=== PATIENT | male | born 1955 ===

== ENCOUNTER 2021-04-28 08:00 | Inpatient (IN) ==
--- NOTE | 2021-04-11 10:39 | PAT Medication Instructions ---
Medication Instructions Date of Service April 11, 2021 Home Medications apixaban [Eliquis] 5 mg PO BID aspirin [Aspir-81] 81 mg PO QAM atenolol 50 mg PO BID cyclobenzaprine [Flexeril] 10 mg PO TID PRN gabapentin 600 mg PO BID isosorbide mononitrate 60 mg PO BID magnesium oxide 400 mg PO TID multivitamin 1 tab PO QAM oxycodone-acetaminophen 1 tab PO BID potassium chloride 10 meq PO BID simvastatin 20 mg PO HS spironolactone 25 mg PO TID tiotropium bromide [Spiriva with HandiHaler] 1 cap INHALATION QAM ASK your prescriber and surgeon apixaban [Eliquis] 5 mg PO BID aspirin [Aspir-81] 81 mg PO QAM DO NOT take the morning of surgery cyclobenzaprine [Flexeril] 10 mg PO TID PRN magnesium oxide 400 mg PO TID multivitamin 1 tab PO QAM potassium chloride 10 meq PO BID spironolactone 25 mg PO TID Take morning of surgery With a small sip of water, OTHERWISE NOTHING TO EAT OR DRINK AFTER MIDNIGHT: atenolol 50 mg PO BID gabapentin 600 mg PO BID isosorbide mononitrate 60 mg PO BID oxycodone-acetaminophen 1 tab PO BID (okay to take up to 4 hours prior to surgery if needed) tiotropium bromide [Spiriva with HandiHaler] 1 cap INHALATION QAM Take evening before surgery atenolol 50 mg PO BID cyclobenzaprine [Flexeril] 10 mg PO TID PRN (if needed) gabapentin 600 mg PO BID isosorbide mononitrate 60 mg PO BID magnesium oxide 400 mg PO TID oxycodone-acetaminophen 1 tab PO BID potassium chloride 10 meq PO BID simvastatin 20 mg PO HS spironolactone 25 mg PO TID Other Notes If you have any questions please call us at [phone] or [phone] or [phone] or [phone]
--- NOTE | 2021-04-14 11:08 | Anesthesiology Consultation ---
Date of Service April 14, 2021 Assessment & Plan (1) Encounter for pre-operative examination: - Awaiting most recent cardiology office visit. - Abnormal preop CXR: noting Ill-defined opacities of the peripheral right midlung may be artifactual or reflect a nonspecific interstitial pneumonitis. Awaiting PCP response. - COVID screening: Per assessment on 04/07: Travel screen negative, no known COVID-19 positive contacts or current COVID-19 related symptoms. Patient vaccinated. Surgeon arranging preop COVID testing (scheduled 04/26). Awaiting results. - Eliquis instructions: per surgeon/prescriber Chart Review Chart Review: Patient seen in Pre Admission Testing Teaching & Discussion Pre-Anesthesia Teaching/Discussion Notes: Instructed NPO after midnight before surgery,except medications with 15 cc of water. Medication instructions provided according to the PAT guidelines. History Surgery Operation Date: 04/28/21 09:35 Proposed Procedures p T12-L3 Decompression Fusion, L3-L5 Hardware Removal Possible L3-L5 Re- Instrumentation Spinal Cord Monitoring - Byron Dillard DO Height/Weight Height: 6 ft 1 in Weight: 96.4 kg Allergies Allergy/AdvReac Type Severity Reaction Status Date / Time No Known Allergies Allergy Verified 04/07/21 13:50 Medications Home Medications Medication Instructions Recorded Confirmed Last Taken apixaban [Eliquis] 5 mg PO BID 04/07/21 04/07/21 Unknown aspirin [Aspir-81] 81 mg PO QAM 04/07/21 04/07/21 Unknown atenolol 50 mg PO BID 04/07/21 04/07/21 Unknown cyclobenzaprine [Flexeril] 10 mg PO TID PRN 04/07/21 04/07/21 Unknown gabapentin 600 mg PO BID 04/07/21 04/07/21 Unknown isosorbide mononitrate 60 mg PO BID 04/07/21 04/07/21 Unknown magnesium oxide 400 mg PO TID 04/07/21 04/07/21 Unknown multivitamin 1 tab PO QAM 04/07/21 04/07/21 Unknown oxycodone-acetaminophen 1 tab PO BID 04/07/21 04/07/21 Unknown potassium chloride 10 meq PO BID 04/07/21 04/07/21 Unknown simvastatin 20 mg PO HS 04/07/21 04/07/21 Unknown spironolactone 25 mg PO TID 04/07/21 04/07/21 Unknown tiotropium bromide [Spiriva with 1 cap INHALATION QAM 04/07/21 04/07/21 Unknown HandiHaler] Past Medical History Medical History Arthritis Atrial fibrillation Follows with Dr. Mikala Lion ([place]), on Eliquis CAD (coronary artery disease) Stents x2 ([place])- 10+ years ago Chronic obstructive pulmonary disease Congestive heart failure Degenerative disc disease History of pelvic fracture Medically managed (5+ years ago) Hyperlipidemia Hypertension Peripheral neuropathy Sleep apnea CPAP Spinal stenosis Exercise / Class Metabolic Activity III < 4 Walking/Shop/Light housework (one flight of stairs (no chest pain, + sob)) Past Family History Family History Other No family history of adverse response to anesthesia Past Surgical History Surgical History Fusion of spine Lumbar H/O abdominal surgery Sepsis after appe from hematoma formation > evacuation of hematoma and I&D H/O colonoscopy with polypectomy H/O elbow surgery Right History of anesthesia reaction "slow to wake" with most recent back surgery History of appendectomy History of carpal tunnel release Right History of heart artery stent Stents x2 ([place])- 10+ years ago History of nasal cauterization History of tooth extraction Hx of basal cell carcinoma excision Cervical region Past Anesthesia History No Hx of Anesthesia Complications and No Family Hx of Anesthesia Complications History of PONV No Hx of PONV and No Hx of Motion Sickness Social History Smoking Status: Former smoker tobacco type: cigarettes and smokeless tobacco Do You Dip or Chew Tobacco: Yes (1 can/3-4 days > advised none DOS) Smoking End Date: Quit 10+ years ago Hx Alcohol Use: No (Quit 1 year ago) Hx Substance Use: No Review of Systems Patient denies chest pain, shortness of breath, fever, chills, cough, wheezing, palpitations. Physical Exam Vital Signs VITALS BP 116/63 P 74 TEMP 98.5 SP02 94%RA RESP 18 PHYSICAL Full cervical extension range of motion (+ neck tightness with extension). Full TMJ range of motion. TMD 3 finger breaths Mallampati Score 2 Dentition: upper full plate, full lower plate (doesn't wear) Lungs: clear throughout to auscultation Cardiac: regular rate and rhythm, no murmurs noted, distant heart sounds Spine: normal Carotid arteries: negative bruit Extremities: no edema + small cruz Lab Results Anesthesia Preop Results Results Anesthesia Widget: WBC 8.79 K/uL (4.8-10.8) 04/14/21 Hgb 11.9 g/dL (14.0-18.0) L 04/14/21 Hct 35.6 % (42-52) L 04/14/21 Plt 180 K/uL (130-400) 04/14/21 Na 139 mmol/L (136-145) 04/14/21 K 4.4 mmol/L (3.5-5.1) 04/14/21 Cl 105 mmol/L (98-107) 04/14/21 CO2 31 mmol/L (21-32) 04/14/21 BUN 18 mg/dl (7-18) 04/14/21 Creat 0.73 mg/dl (0.6-1.4) 04/14/21 Glucose Level 119 mg/dl (70-99) H 04/14/21 PT 9.8 Seconds (9.0-12.0) 04/14/21 PTT 29.9 Seconds (21.0-31.0) 04/14/21 INR 1.0 (0.9-1.1) 04/14/21 Urine Color Yellow 04/14/21 Urine Appearance Clear (Clear) 04/14/21 Urine pH 6.0 (4.5-7.5) 04/14/21 Urine Specific [place] 1.016 (1.000-1.030) 04/14/21 Urine Protein Negative (Negative) 04/14/21 Urine Glucose (UA) Negative (Negative) 04/14/21 Urine Ketones Negative (Negative) 04/14/21 Urine Blood Negative (Negative) 04/14/21 Urine Nitrite Negative (Negative) 04/14/21 Urine Bilirubin Negative (Negative) 04/14/21 Urine Urobilinogen Negative (Negative) 04/14/21 Urine Leukocyte Esterase Negative (Negative) 04/14/21 Blood Type A Positive 04/14/21 Antibody Screen NEGATIVE 04/14/21 Lab Comments: Preop labs forwarded to PCP for continuity of care. Testing Electrocardiogram Date: 04/12/21 SR at 80bpm. NS TWA. Chest X-Ray Date: 04/14/21 Ill-defined opacities of the peripheral right midlung may be artifactual or reflect a nonspecific interstitial pneumonitis. Hyperinflation. Cardiomegaly.
[~2021-04-28 08:00] MED LIST: ACETAMINOPHEN 500 MG TAB PO SCH; CeleBREX 200 MG CAP PO SCH; GABAPENTIN 300 MG CAP PO SCH; LR 15ML/HR IV SCH; ceFAZolin 2000MG 2,000 MG/15 ML SYR IV SCH
--- NOTE | 2021-04-28 09:14 | History & Physical Bridge Note ---
Date of Service April 28, 2021 History & Physical Bridge Note I have examined the patient, reviewed the History & Physical and in the interval since the performance of the History & Physical I have noted the following changes of clinical significance: no changes noted
--- NOTE | 2021-04-28 09:15 | History & Physical Report ---
Date of Service April 28, 2021 Assessment & Plan (1) Neurogenic claudication due to lumbar spinal stenosis: Admission and Anticipated Discharge Date Admission Date: T12-L3 decompression fusion, L3-L5 hardware removal, possible L3-L5 instrumentation History of Present Illness Chief Complaint: Back and bilateral leg pain Primary Care Provider: [place] Arguello This is a 65-year-old male who presents with chronic persistent back and leg pain. Failing course of nonoperative care is here for surgical invention. Allergies Allergy/AdvReac Type Severity Reaction Status Date / Time No Known Allergies Allergy Verified 04/28/21 08:27 Home Medications Medication Instructions Recorded Confirmed Type apixaban [Eliquis] 5 mg PO BID 04/07/21 04/28/21 History aspirin [Aspir-81] 81 mg PO QAM 04/07/21 04/28/21 History atenolol 50 mg PO BID 04/07/21 04/28/21 History cyclobenzaprine [Flexeril] 10 mg PO TID PRN 04/07/21 04/28/21 History gabapentin 600 mg PO BID 04/07/21 04/28/21 History isosorbide mononitrate 60 mg PO BID 04/07/21 04/28/21 History magnesium oxide 400 mg PO TID 04/07/21 04/28/21 History multivitamin 1 tab PO QAM 04/07/21 04/28/21 History oxycodone-acetaminophen 1 tab PO BID 04/07/21 04/28/21 History potassium chloride 10 meq PO BID 04/07/21 04/28/21 History simvastatin 20 mg PO HS 04/07/21 04/28/21 History spironolactone 25 mg PO TID 04/07/21 04/28/21 History tiotropium bromide [Spiriva with 1 cap INHALATION QAM 04/07/21 04/28/21 History HandiHaler] Past Med/Surg History Medical History Arthritis Atrial fibrillation Follows with Dr. Mikala Lion ([place]), on Eliquis CAD (coronary artery disease) Stents x2 ([place])- 10+ years ago Chronic obstructive pulmonary disease Congestive heart failure Degenerative disc disease History of pelvic fracture Medically managed (5+ years ago) Hyperlipidemia Hypertension Peripheral neuropathy Sleep apnea CPAP Spinal stenosis Surgical History Fusion of spine Lumbar H/O abdominal surgery Sepsis after appe from hematoma formation > evacuation of hematoma and I&D H/O colonoscopy with polypectomy H/O elbow surgery Right History of anesthesia reaction "slow to wake" with most recent back surgery History of appendectomy History of carpal tunnel release Right History of heart artery stent Stents x2 ([place])- 10+ years ago History of nasal cauterization History of tooth extraction Hx of basal cell carcinoma excision Cervical region Family History Other No family history of adverse response to anesthesia Social History Smoking Status: Former smoker Smoking End Date: Quit 10+ years ago; Second Hand Exposure: Yes (IN THE PAST); Do You Dip or Chew Tobacco: Yes (1 can/3-4 days > advised none DOS); Tobacco Cessation Education Requested by Patient: No Hx Alcohol Use: No (Quit 1 year ago) Hx Substance Use: No Preferred Language: Amharic Counter Stitcher Required: No Beliefs That Will Affect Care: None Current Living Situation: Spouse Feels Safe at Home: Yes Safety Concerns: Feels Safe At This Time Assistive Devices: Cane, CPAP, Denture - Upper and Glasses Physical Exam Physical Exam: Patient is alert and oriented Heart regular in rhythm Lungs clear to auscultation Results & Data ([facility]) Vital Signs (Past 12 Hours) Vital Signs Temp Pulse Resp BP Pulse Ox 04/28/21 08:50 36.8 C 67 20 138/70 98
[2021-04-28] MEDS ORDERED: ePHEDrine sulfate 50 MG/ML AMP IV PRN (09:25)
[2021-04-28] MEDS ORDERED: ONDANSETRON INJ 2 MG/ML 2 ML VIAL IV PRN ×2 (09:25→15:35)
[2021-04-28] MEDS ORDERED: ATROPINE SULFATE 0.1 MG/ML 10ML SYR IV PRN (09:25)
[2021-04-28] MEDS ORDERED: BUPIVACAINE/EPINEPHRINE 0.5% MPF 1:200,000 30 ML VIAL ONE (09:29)
[2021-04-28] MEDS ORDERED: MIDAZOLAM HCL 1 MG/ML 2ML VIAL ONE (09:33)
[2021-04-28] MEDS ORDERED: fentaNYL citrate 100 MCG/2 ML VIAL ONE ×2 (09:33→12:41)
[2021-04-28] MEDS ORDERED: KETAMINE 50 MG/5 ML SYRINGE ONE (11:15)
[2021-04-28] MEDS ORDERED: ONDANSETRON INJ 2 MG/ML 2 ML VIAL ONE (11:28)
[2021-04-28] MEDS ORDERED: LIDOCAINE 2% 2 ML VIAL/AMP(20MG/ML) INFIL ONE (11:28)
[2021-04-28] MEDS ORDERED: DEXAMETHASONE SOD INJ 4 MG/ML VIAL ONE (11:28)
[2021-04-28] MEDS ORDERED: PROPOFOL IV EMULSION 10 MG/ML 20 ML VIAL IV ONE (11:28)
[2021-04-28] MEDS ORDERED: ROCURONIUM BROMIDE 10 MG/ML 5 ML VIAL IV ONE (11:28)
[2021-04-28] MEDS ORDERED: SUCCINYLCHOLINE CHLORIDE 20 MG/ML 10 ML VIAL IV ONE (11:28)
[2021-04-28] MEDS ORDERED: ePHEDrine sulfate 50 MG/ML AMP ONE (11:29)
[2021-04-28] MEDS ORDERED: ALBUMIN HUMAN 5% 12.5 GM/250 ML VIAL IV ONE (11:40)
[2021-04-28] MEDS ORDERED: FLOSEAL HEMOSTATIC MATRIX 10ML TOP ONE (12:59)
[2021-04-28] MEDS ORDERED: SODIUM CHLORIDE 0.9% 250 ML IV PRN (13:00)
[2021-04-28] MEDS ORDERED: SUGAMMADEX SODIUM 200 MG/2 ML VIAL IV ONE (13:09)
--- NOTE | 2021-04-28 13:15 | Operative Report ---
Post Operative Report Pre & Post Diagnosis Operation Date: 04/28/21 09:45 Pre-Op Diagnosis: Neurogenic Claudication due to Lumbar Spinal Stenosis Post-Op Diagnosis: Neurogenic Claudication due to Lumbar Spinal Stenosis I identified the patient and participated in the time-out.: Yes Procedure Operation Date: 04/28/21 09:45 Actual Procedures #1 removal of posterior segmental instrumentation L3 445. #2 exploration of fusion L3-4 L4-5. #3 revision lumbar decompression with bilateral medial facetectomies and foraminotomies T12-L1, L1-L2 and L2-L3. #4 posterior spinal fusion T12-L3. #5 placement posterior segmental instrumentation from T12-L5. #6 placement locally harvested morselized autograft in the posterior gutters. #7 placement of infuse collagen sponge, and master graft in the posterior gutters T12 and L5 3. Surgeon Byron Dillard, DO Humanities Department Chair Sabrina Sebastian Estimated Blood Loss 900 Findings Consistent with Post-Op Diagnosis Specimens None Indications This is a 65-year-old male who presents with severe limitation secondary to advanced lumbar spinal stenosis. Subsequently is here for the above-mentioned procedure. Description of Procedure Patient was met with identified informed consent obtained. Patient was then taken to the operative suite underwent an patient placed in a prone position the Girma table was in frame. All bony prominences well-padded eyes inspected to ensure no external pressure placed upon up at this point the lumbar spine was p repped and draped in a sterile fashion. Sharp dissection with the assistance of Bovie cautery was performed down to and exposing the lamina and transverse processes of T12 L1-L2 and the instrumentation at L3-L4-L5 bilaterally. Then proceeded to move the hardware bilaterally explore the fusion mass noting it to be mature and intact. Then performed revision complete laminectomy of L2 L1 and partial laminectomy of T12. I noted severe central lateral recess as well as foraminal stenosis. Pedicle screws were then placed in T12 L1-L2-L3 and L5 bilaterally with assistance of fluoroscopy the proper sized kellie contoured and placed and locked into position. The transverse processes of T12 L1-L2-L3 were then burred to subcortical bleeding bone. Infuse collagen sponge master graft local autograft was placed in the posterior gutters. 15 round AVNI drain inserted. The incision was then closed with 1 Vicryl the fascia 2-0 Vicryl subcutaneously and 4 Monocryl for final skin closure. Steri-Strip sterile dressings placed. Patient will continue PACU stable condition. Please note spinal cord monitoring was utilized at the procedure no changes noted. Lastly Sabrina Sebastian was present at the entire surgeon while the patient positioning complex portions of the surgery and final skin closure. I attest to the content of the Intraoperative Record and any orders documented therein. Any exceptions are noted below.
[2021-04-28] MEDS ORDERED: BACITRACIN OINT 15 GM TUBE ONE (13:35)
--- NOTE | 2021-04-28 14:03 | Fluoroscopy Report ---
FL lumbar spine 2-3V CLINICAL HISTORY: T12-L3 DECOMPRESSION FUSION COMPARISON STUDY: None FLUOROSCOPY TIME: 29 seconds. NUMBER OF FLUOROSCOPIC IMAGES: 3 FINDINGS: Intraoperative fluoroscopic images presented for review shows multiple screws within the vertebral van dies connecting by fixating plates. IMPRESSION: As above. ACT 112: Negative or not required by law. The above report was generated using voice recognition software. It may contain grammatical, syntax o r spelling errors. Electronically signed by: Erica Corado DO 04/28/2021 2:01 PM
[2021-04-28] MEDS: fentaNYL citrate 100 MCG/2 ML VIAL IV PRN ×2 (14:18→14:26)
[2021-04-28 14:21] LABS: iSTAT Creatinine 0.7 mg/dl (0.6-1.3); iSTAT Hemoglobin 10.2 g/dl (14.0-18.0); iSTAT Ionized Calcium 1.27 mmol/l (1.12-1.32); iSTAT Potassium 4.2 mmol/L (3.3-5.0)
[2021-04-28] MEDS: HYDROmorphone INJ 2 MG/ML SYR/VIAL IV PRN ×4 (14:44→15:01)
--- NOTE | 2021-04-28 15:11 | Anesthesiology Progress Note ---
Date of Service April 28, 2021 Anesthesia Post Procedure Vital Signs Vital Signs: Temp Pulse Pulse Resp BP BP Pulse Ox 04/28/21 15:00 76 18 138/82 95 04/28/21 14:50 77 20 136/75 93 04/28/21 14:40 76 20 143/81 H 95 04/28/21 14:30 80 16 146/70 H 98 04/28/21 14:20 75 18 142/98 H 97 04/28/21 14:10 76 20 145/78 H 98 04/28/21 14:00 78 18 107/77 95 04/28/21 13:50 76 20 131/76 97 04/28/21 13:48 36.5 C 76 17 140/68 97 04/28/21 08:50 36.8 C 67 20 138/70 98 Pain Intensity Left Buttock: Pain Intensity: 5 Back: Pain Intensity: 9 Transfer of Care Handoff Completed per policy Notes Mental Status: alert / awake / arousable and participated in evaluation Patient Amnestic to Procedure: Yes Nausea / Vomiting: adequately controlled Pain: adequately controlled Airway Patency, RR, SpO2: stable & adequate BP & HR: stable & adequate Hydration State: stable & adequate Anesthetic Complications: no major complications apparent and Pt Satisfied with anesthetic care
[2021-04-28] MEDS ORDERED: LORazepam 0.5 MG/1 ML VIAL IV PRN (15:35)
[2021-04-28] MEDS ORDERED: ACETAMINOPHEN 500 MG TAB PO PRN (15:35)
[2021-04-28] MEDS ORDERED: diphenhydrAMINE Capsule 25 MG CAP PO PRN (15:35)
[2021-04-28] MEDS ORDERED: hydrOXYzine HCl 25 MG TAB PO PRN (15:35)
[2021-04-28] MEDS ORDERED: LORazepam 0.5 MG TAB PO PRN (15:35)
[2021-04-28] MEDS ORDERED: METOCLOPRAMIDE HCL INJ 5 MG/ML 2 ML VIAL IV PRN (15:35)
[2021-04-28] MEDS ORDERED: ALUMINUM/MAGNESIUM SUSP 30 ML UDC PO PRN (15:35)
[2021-04-28] MEDS ORDERED: HYDROmorphone INJ 1 MG/ML SYRINGE IV PRN (15:35)
[2021-04-28] MEDS ORDERED: ONDANSETRON 4 MG OD TAB PO PRN (15:35)
[2021-04-28] MEDS ORDERED: FAMOTIDINE 20 MG TAB PO PRN (15:35)
[2021-04-28] MEDS ORDERED: HYDROmorphone INJ 0.5 MG/0.5 ML SYR IV PRN (15:35)
[2021-04-28] MEDS ORDERED: SOD PHOSPHATE/SOD BIPHOSPHATE ENEMA 132 ML BTL PR PRN (15:35)
[2021-04-28] MEDS ORDERED: MAGNESIUM HYDROXIDE SUSP 30 ML UDC PO PRN (15:35)
[2021-04-28] MEDS ORDERED: traMADol HCL 50 MG TABLET PO PRN (15:35)
[2021-04-28] MEDS ORDERED: ACETAMINOPHEN 1,000 MG/100 ML VIAL IV PRN (15:35)
[2021-04-28] MEDS ORDERED: NALOXONE HCL 0.4 MG/1 ML VIAL/CARP IV PRN (15:35)
[2021-04-28] MEDS ORDERED: PROMETHAZINE HCL 12.5 MG in SODIUM CHLORIDE 0.9% 50 ML IV PRN (15:35)
[2021-04-28] MEDS ORDERED: DO NOT ADMINISTER PNEUMOCOCCAL VACCINE PRN (15:35)
[2021-04-28] MEDS ORDERED: DO NOT ADMINISTER FLU VACCINE PRN (15:35)
[2021-04-28] MEDS: SODIUM CHLORIDE 0.9% 1000ML 1,000 ML IV SCH (15:53)
[2021-04-28] MEDS ORDERED: CYCLOBENZAPRINE HCL 10 MG TAB PO PRN (16:07)
[2021-04-28] MEDS: ceFAZolin 2000MG 2,000 MG/15 ML SYR IV SCH (17:08)
[2021-04-28] MEDS: SPIRONOLACTONE 25 MG TAB PO SCH ×2 (17:08→21:39)
[2021-04-28] MEDS: ATENOLOL 50 MG TABLET PO SCH (21:36)
[2021-04-28] MEDS: DOCUSATE SODIUM/SENNA 50/8.6MG TAB PO SCH (21:37)
[2021-04-28] MEDS: ISOSORBIDE MONO EXTENDED REL 60 MG TABCR PO SCH (21:38)
[2021-04-28] MEDS: POTASSIUM CHLORIDE 10 MEQ TABCR PO SCH (21:38)
[2021-04-28] MEDS: GABAPENTIN 300 MG CAP PO SCH (21:38)
[2021-04-28] MEDS: SIMVASTATIN 20 MG TAB PO SCH (21:39)
[2021-04-28] MEDS: MAGNESIUM OXIDE 400 MG TAB PO SCH (21:39)
[2021-04-28] MEDS: oxyCODONE HCL IR 5 MG TAB (IMMEDIATE RELEASE) PO PRN (22:03)
[2021-04-29] MEDS: oxyCODONE HCL IR 5 MG TAB (IMMEDIATE RELEASE) PO PRN ×4 (02:13→20:37)
[2021-04-29] MEDS: SODIUM CHLORIDE 0.9% 1000ML 1,000 ML IV SCH (02:13)
[2021-04-29] MEDS: ceFAZolin 2000MG 2,000 MG/15 ML SYR IV SCH ×2 (02:13→11:02)
[2021-04-29] MEDS: POLYETHYLENE (MIRALAX) 17 GM PACK PO SCH ×4 (06:08→23:49)
[2021-04-29 06:10] LABS: Hematocrit (blood only) 25.9 % (42-52); Hemoglobin 8.7 g/dL (14.0-18.0); Immature Granulocytes # (auto) 0.06 K/uL (0.00-0.02); Immature Granulocytes % (auto) 0.4 %; Lymphocytes # (auto) 1.44 K/uL (1.2-3.4); Lymphocytes % (auto) 9.7 %; Mean Corpuscular Hemoglobin 33.3 pg (25-34); Mean Corpuscular Hgb Conc 33.6 g/dL (32-36); Mean Corpuscular Volume 99.2 fL (80-100); Mean Platelet Volume 12.1 fL (7.4-10.4); Monocytes # (auto) 1.18 K/uL (0.11-0.59); Neutrophils # (auto) 12.12 K/uL (1.4-6.5); Neutrophils % (auto) 81.9 %; Platelet Count 136 K/uL (130-400); RDW Coefficient of Variation 16.8 % (11.5-14.5); RDW Standard Deviation 60.5 fL (36.4-46.3); Red Blood Count 2.61 M/uL (4.7-6.1)
[2021-04-29 06:36] LABS: BUN Creatinine Ratio 23.5 (10-20); Calcium 7.7 mg/dl (8.5-10.1); Creatinine Clr Calc Pharmacy 115.7 ml/min; Est GFR (African American) 113.2 ml/min; Est GFR (Non-African American) 97.7 ml/min; Potassium 4.6 mmol/L (3.5-5.1)
--- NOTE | 2021-04-29 09:33 | Hospitalist Consultation ---
Date of Consultation April 29, 2021 Assessment & Plan (1) Neurogenic claudication due to lumbar spinal stenosis: POD #1 - lumbar decompression and fusion - Pain control, PT/OT per primary service - Discussed the importance of incentive spirometry with patient - Hgb today 8.7 - repeat in AM - Resume Eliquis once okay with primary service (2) Paroxysmal A-fib: Pt reports no known recurrence of atrial fibrillation since initial episode - is on chronic anticoagulation - Resume Eliquis once okay with primary service - Continue beta-angela (3) Chronic obstructive pulmonary disease: - Continue maintenance inhaler - Add rescue inhaler due to chronic dyspnea/CUMMINGS - Encourage IS (4) CAD (coronary artery disease): Denies anginal symptoms at present - does have occasional CP as outpatient for which he uses prn nitro with relief - Continue aspirin, Imdur, beta-angela (5) Hypertension: BP at present appears well-controlled - Continue home regimen (6) Peripheral neuropathy: - Continue outpatient gabapentin Pt seen and reviewed with collaborating physician, Dr. Andrea. Plan of care discussed and as outlined above. We will continue to follow this patient with you. A member of the [facility]ist Team is available 28/05 via [employer]. Please do not hesitate to reach out with questions or concerns. Thank you for this consultation. Lawrence Mcmillan PA-C Supervising Physician Co-Signing Physician Notes 04/29/2021 The patient was seen and examined in medical floor He is a status post T12-L5 decompression fusion on 04/28/2021 Has been complaining of back pain and has usual numbness and tingling involving the extremities from neuropathy Denies any chest pain, shortness of breath, palpitation, any abdominal pain, nausea and or vomiting On examination Sitting on a chair without any acute distress Hemodynamically stable Chestclear to auscultate bilaterally HeartS1-S2, regular Abdomendistended, soft, nontender with normal bowel sound Extremitiesno edema CNSalert, awake and oriented x3 His admission labs, EKG and imaging studies reviewed Has multiple medical problems as mentioned in history and physical with status post lumbar decompression fusion Medically stable Agree with assessment and plan as outlined above by EILEEN Dash Dr History of Present Illness Reason for Consultation: Post-operative Medical Management Requesting Physician: Dr. Byron Dillard Attending Physician: Byron Dillard, DO History of Present Illness This is a 65 y/o male with a PMH of CAD s/p stent x 2, PAF on chronic AC, COPD, HTN, and dyslipidemia who underwent lumbar decompression and fusion yesterday by Dr. Dillard. We have been consulted to assist with post-operative medical management. The patients reports that he is overall doing all although had sig nificant back pain last night - woke up every hour due to pain. He also notes a mild sore throat for which he has lozenges but has not yet tried anything. He reports chronic dyspnea that is unchanged from baseline. He denies chest pain, palpitations, ROSS, dizziness, cough, wheezing, chest heaviness/tightness, N/V/D. He has a Morgan in place. He has not yet passed gas or had a BM. Allergies Allergy/AdvReac Type Severity Reaction Status Date / Time No Known Allergies Allergy Verified 04/28/21 08:27 Home Medications Medication Instructions Recorded Confirmed Type apixaban [Eliquis] 5 mg PO BID 04/07/21 04/28/21 History aspirin [Aspir-81] 81 mg PO QAM 04/07/21 04/28/21 History atenolol 50 mg PO BID 04/07/21 04/28/21 History cyclobenzaprine [Flexeril] 10 mg PO TID PRN 04/07/21 04/28/21 History gabapentin 600 mg PO BID 04/07/21 04/28/21 History isosorbide mononitrate 60 mg PO BID 04/07/21 04/28/21 History magnesium oxide 400 mg PO TID 04/07/21 04/28/21 History multivitamin 1 tab PO QAM 04/07/21 04/28/21 History oxycodone-acetaminophen 1 tab PO BID 04/07/21 04/28/21 History potassium chloride 10 meq PO BID 04/07/21 04/28/21 History simvastatin 20 mg PO HS 04/07/21 04/28/21 History spironolactone 25 mg PO TID 04/07/21 04/28/21 History tiotropium bromide [Spiriva with 1 cap INHALATION QAM 04/07/21 04/28/21 History HandiHaler] Patient History Medical History (Updated 04/29/21 @ 09:52 by Liliya Mcmillan PA-C) Arthritis CAD (coronary artery disease) Stents x2 ([facility])- 10+ years ago Chronic obstructive pulmonary disease Congestive heart failure Degenerative disc disease History of pelvic fracture Medically managed (5+ years ago) History of skin cancer Hyperlipidemia Hypertension Paroxysmal A-fib Follows with Dr. Mikala Lion ([place]), on Eliquis Peripheral neuropathy Hands and feet Sleep apnea CPAP Spinal stenosis Surgical History (Updated 04/29/21 @ 09:31 by Liliya Mcmillan PA-C) Fusion of spine Lumbar H/O abdominal surgery 2019 - Sepsis after appy from hematoma formation > evacuation of hematoma and I&D H/O colonoscopy with polypectomy H/O elbow surgery Right History of anesthesia reaction "slow to wake" with most recent back surgery History of appendectomy 2019 History of carpal tunnel release Right History of heart artery stent Stents x2 ([facility])- 10+ years ago History of nasal cauterization History of tooth extraction History of tracheostomy Hx of basal cell carcinoma excision Cervical region Family History Other No family history of adverse response to anesthesia Social History (Updated 04/29/21 @ 09:34 by Liliya Mcmillan PA-C) Smoking Status: Former smoker Smoking End Date: Quit 10+ years ago when diagnosed with COPD; Second Hand Exposure: Yes (IN THE PAST); Do You Dip or Chew Tobacco: Yes (1 can/3-4 days > advised none DOS); Tobacco Cessation Education Requested by Patient: No Hx Alcohol Use: No (Quit 1 year ago ) Hx Substance Use: No Preferred Language: Guinean Communication Ability: Effective Upsetter Setter Up Required: No Beliefs That Will Affect Care: None marital status: Current Living Situation: Spouse Feels Safe at Home: Yes Safety Concerns: Feels Safe At This Time Assistive Devices: Walker Review of Systems Review of Systems: All systems reviewed & are unremarkable except as noted in HPI & below Constitutional: no fever, no chills, no sweats and no anorexia Eyes: no diplopia and no worsening vision Ear, Nose, Mouth, Throat: + sore throat; no nasal congestion and no dysphagia Respiratory: + dyspnea (chronic) and + dyspnea on exertion (chronic); no cough and no hemoptysis Cardiovascular: no chest pain, no palpitations, no syncope and no edema Gastrointestinal: no abdominal pain, no nausea, no vomiting and no diarrhea/loose stools Genitourinary: no dysuria and no hematuria Musculoskeletal: + back pain; no neck pain, no myalgia and no muscle weakness Integumentary: no rash and no skin ulcer Neurologic: + tingling and + numbness; no tremor(s), no seizure-like activity, no headache(s) and no confusion Psychiatric: no depression and no anxiety Physical Exam Constitutional: WD/WN, vitals as above no acute distress Eyes: + anicteric sclerae; no conjunctival abnormality ENMT: external ear and nose normal, oropharynx normal Neck: trachea midline Respiratory: no respiratory distress and no labored breathing Auscultation: + diminished lung sounds; no rales, no rhonchi and no wheezes Cardiovascular: Rate/Rhythm: regular rate and regular rhythm Heart Sounds: no click, no gallop and no murmur Gastrointestinal (Abdomen): Inspection/Auscultation: + abdomen distended (mild) and normal bowel sounds Percussion/Palpation: abdomen soft; abdomen nontender Musculoskeletal: Head/Neck/Chest: normocephalic, head atraumatic and neck supple moving all extremities Skin: lumbar dressing C/D/I - Drain in place with sanguinous drainage Neurologic: no focal motor deficits Psychiatric: A+Ox3, euthymic affect Results & Data Results & Data ([facility]) Vital Signs (Past 12 Hours) Vital Signs Temp Pulse Resp BP Pulse Ox 04/29/21 07:29 36.7 C 77 18 113/67 92 04/29/21 02:11 36.6 C 74 16 116/61 91 Laboratory Results Laboratory Results - last 24 hr 04/28/21 04/28/21 04/29/21 08:26 12:41 05:44 WBC 14.80 H RBC 2.61 L Hgb 8.7 L POC Hgb 10.2 L Hct 25.9 L POC Hct 30 L MCV 99.2 MCH 33.3 MCHC 33.6 RDW Std Deviation 60.5 H RDW Coeff of Lexii 16.8 H Plt Count 136 MPV 12.1 H Immature Gran % (Auto) 0.4 Neut % (Auto) 81.9 Lymph % (Auto) 9.7 [place] % (Auto) 8.0 Eos % (Auto) 0.0 Baso % (Auto) 0.0 Neut # (Auto) 12.12 H Lymph # (Auto) 1.44 [place] # (Auto) 1.18 H Eos # (Auto) 0.00 Baso # (Auto) 0.00 Immature Gran # (Auto) 0.06 H POC Sodium 139 Sodium POC Potassium 4.2 Potassium POC Chloride 102 Chloride Carbon Dioxide POC Total CO2 25 Anion Gap POC Anion Gap 17.0 POC BUN 14 BUN Creatinine POC Creatinine 0.7 Est Cr Clr Drug Dosing Est GFR ( Amer) Est GFR (Non-Af Amer) BUN/Creatinine Ratio Glucose POC Glucose (other) 132 H Calcium POC Ioniz Calcium Ravindra 1.27 Blood Type A Positive Antibody Screen NEGATIVE Crossmatch See Detail 04/29/21 05:44 WBC RBC Hgb POC Hgb Hct POC Hct MCV MCH MCHC RDW Std Deviation RDW Coeff of Lexii Plt Count MPV Immature Gran % (Auto) Neut % (Auto) Lymph % (Auto) [place] % (Auto) Eos % (Auto) Baso % (Auto) Neut # (Auto) Lymph # (Auto) [place] # (Auto) Eos # (Auto) Baso # (Auto) Immature Gran # (Auto) POC Sodium Sodium 137 POC Potassium Potassium 4.6 POC Chloride Chloride 104 Carbon Dioxide 29 POC Total CO2 Anion Gap 4.0 POC Anion Gap POC BUN BUN 17 Creatinine 0.70 POC Creatinine Est Cr Clr Drug Dosing 115.7 Est GFR ( Amer) 113.2 Est GFR (Non-Af Amer) 97.7 BUN/Creatinine Ratio 23.5 H Glucose 140 H POC Glucose (other) Calcium 7.7 L POC Ioniz Calcium Ravindra Blood Type Antibody Screen Crossmatch Medications Administered Atenolol (Atenolol 50 Mg Tablet) 50 mg PO BID [facility] Stop: 05/28/21 20:59 Last Admin: 04/28/21 21:36 Dose: Not Given Documented by: [id number] Gabapentin (Gabapentin 300 Mg Cap) 600 mg PO BID [facility] Stop: 05/28/21 20:59 Last Admin: 04/28/21 21:38 Dose: 600 mg Documented by: [id number] Cefazolin Sodium (Ancef 2000mg) 2,000 mg in 15 mls @ 2.5 mls/min IV Q8H [facility]; Protocol Stop: 04/29/21 17:59 Last Admin: 04/29/21 02:13 Dose: 2.5 mls/min Documented by: [id number] Admin: 04/28/21 17:08 Dose: 2.5 mls/min Documented by: [id number] Isosorbide Mononitrate (Isosorbide [place] Extended Rel 60 Mg Tabcr) 60 mg PO BID [facility] Stop: 05/28/21 20:59 Last Admin: 04/28/21 21:38 Dose: 60 mg Documented by: [id number] Magnesium Oxide (Magnesium Oxide 400 Mg Tab) 400 mg PO TID [facility] Stop: 05/28/21 20:59 Last Admin: 04/28/21 21:39 Dose: 400 mg Documented by: [id number] Oxycodone HCl (Oxycodone Hcl Ir 5 Mg Tab (Immediate Release)) 5 - 10 mg PO Q4H PRN PRN Reason: Pain & Pre PT Stop: 05/12/21 15:34 Last Admin: 04/29/21 06:50 Dose: 10 mg Documented by: [id number] Admin: 04/29/21 02:13 Dose: 10 mg Documented by: [id number] Admin: 04/28/21 22:03 Dose: 10 mg Documented by: [id number] Polyethylene Glycol (Polyethylene (Miralax) 17 Gm Pack) 17 gm PO Q6 [facility] Stop: 05/29/21 05:59 Last Admin: 04/29/21 06:08 Dose: Not Given Documented by: [id number] Potassium Chloride (Potassium Chloride 10 Meq Tabcr) 10 meq PO BID [facility] Stop: 05/28/21 20:59 Last Admin: 04/28/21 21:38 Dose: 10 meq Documented by: [id number] Senna/Docusate Sodium (Docusate Sodium/Senna 50/8.6mg Tab) 2 tab PO HS [facility] Stop: 05/28/21 20:59 Last Admin: 04/28/21 21:37 Dose: 2 tab Documented by: [id number] Simvastatin (Simvastatin 20 Mg Tab) 20 mg PO HS [facility] Stop: 05/28/21 20:59 Last Admin: 04/28/21 21:39 Dose: 20 mg Documented by: [id number] Spironolactone (Spironolactone 25 Mg Tab) 25 mg PO TID [facility] Stop: 05/28/21 15:34 Last Admin: 04/28/21 21:39 Dose: 25 mg Documented by: [id number] Admin: 04/28/21 17:08 Dose: 25 mg Documented by: [id number] Discontinued Medications Acetaminophen (Acetaminophen 500 Mg Tab) 1,000 mg PO PREOP [facility] Stop: 04/28/21 18:00 Last Admin: 04/28/21 09:15 Dose: 1,000 mg Documented by: [id number] Bacitracin (Bacitracin Oint 15 Gm Tube) Confirm Administered Dose 45 appln .ROUTE .STK-MED ONE Stop: 04/28/21 13:36 Last Admin: 04/28/21 13:36 Dose: 45 appln Documented by: [id number] Bupivacaine HCl/Epinephrine Bitart (Bupivacaine/Epinephrine 0.5% Mpf 1:200,000 30 Ml Vial) Confirm Administered Dose 30 ml .ROUTE .STK-MED ONE Stop: 04/28/21 09:30 Last Admin: 04/28/21 10:57 Dose: 30 ml Documented by: [id number] Cefazolin Sodium (Cefazolin 250 Mg/Ml 1 Gm Vial) Confirm Administered Dose 1,000 mg .ROUTE .STK-MED ONE Stop: 04/28/21 09:30 Last Admin: 04/28/21 10:57 Dose: 1,000 mg Documented by: [id number] Celecoxib (Celebrex 200 Mg Cap) 200 mg PO PREOP [facility] Stop: 04/28/21 18:00 Last Admin: 04/28/21 09:15 Dose: 200 mg Documented by: [id number] Fentanyl Citrate (Fentanyl Citrate 100 Mcg/2 Ml Vial) 50 mcg IV Q5M PRN PRN Reason: PACU Use Only-Pain Stop: 04/28/21 17:26 Last Admin: 04/28/21 14:26 Dose: 50 mcg Documented by: [id number] Admin: 04/28/21 14:18 Dose: 50 mcg Documented by: [id number] Gabapentin (Gabapentin 300 Mg Cap) 300 mg PO PREOP [facility] Stop: 04/28/21 18:00 Last Admin: 04/28/21 08:44 Dose: Not Given Documented by: [id number] Hydromorphone HCl (Hydromorphone Inj 2 Mg/Ml Syr/Vial) 0.5 mg IV Q5M PRN PRN Reason: PACU Use Only-Pain Stop: 04/28/21 17:26 Last Admin: 04/28/21 15:01 Dose: 0.5 mg Documented by: [id number] Admin: 04/28/21 14:56 Dose: 0.5 mg Documented by: [id number] Admin: 04/28/21 14:51 Dose: 0.5 mg Documented by: [id number] Admin: 04/28/21 14:44 Dose: 0.5 mg Documented by: [id number] Cefazolin Sodium (Ancef 2000mg) 2,000 mg in 15 mls @ 3.75 mls/min IV PREOP [facility]; Protocol Stop: 04/28/21 18:00 Last Admin: 04/28/21 09:51 Dose: 3.75 mls/min Documented by: [id number] Lactated Ringer's (Lr) 1,000 mls @ 15 mls/hr IV .Q24H [facility] Stop: 04/29/21 05:59 Last Infusion: 04/28/21 09:51 Dose: 0 mls/hr Documented by: [id number] Admin: 04/28/21 08:39 Dose: 15 mls/hr Documented by: [id number] Sodium Chloride (Nss 1000ml) 1,000 mls @ 100 mls/hr IV .Q10H [facility] Stop: 05/28/21 15:34 Last Infusion: 04/29/21 05:43 Dose: 0 mls/hr Documented by: [id number] Admin: 04/29/21 02:13 Dose: 100 mls/hr Documented by: [id number] Infusion: 04/29/21 01:53 Dose: 100 mls/hr Documented by: [id number] Admin: 04/28/21 15:53 Dose: 100 mls/hr Documented by: [id number] Miscellaneous ( Floseal Hemostatic Matrix 10ml) 40 ml TOP ONCE ONE Stop: 04/28/21 13:00 Last Admin: 04/28/21 13:00 Dose: 40 ml Documented by: [id number] (1) Peripheral neuropathy Peripheral neuropathy type: polyneuropathy, unspecified Qualified Code(s): G62.9 - Polyneuropathy, unspecified
[2021-04-29] MEDS: ASPIRIN 81 MG ECTAB PO SCH (09:50)
[2021-04-29] MEDS: GABAPENTIN 300 MG CAP PO SCH ×2 (09:51→20:41)
[2021-04-29] MEDS: ATENOLOL 50 MG TABLET PO SCH ×2 (09:51→20:39)
[2021-04-29] MEDS: MAGNESIUM OXIDE 400 MG TAB PO SCH ×3 (09:52→20:39)
[2021-04-29] MEDS: MULTIVITAMIN TAB PO SCH (09:52)
[2021-04-29] MEDS: ISOSORBIDE MONO EXTENDED REL 60 MG TABCR PO SCH ×2 (09:52→20:41)
[2021-04-29] MEDS: POTASSIUM CHLORIDE 10 MEQ TABCR PO SCH ×2 (09:53→20:40)
[2021-04-29] MEDS: SPIRONOLACTONE 25 MG TAB PO SCH ×3 (09:54→20:39)
[2021-04-29] MEDS: UMECLIDINIUM BROMIDE 62.5MCG/BLISTER 7 PUFFS/INHALER INH SCH (09:54)
--- NOTE | 2021-04-29 09:58 | Orthopedic Progress Note ---
Date of Service April 29, 2021 Assessment & Plan (1) Neurogenic claudication due to lumbar spinal stenosis: Admission and Anticipated Discharge Date Admission Date: April 28, 2021 This time continue physical therapy monitor his AVNI output hopefully discharge home Sunday or Sunday. Subjective Back pain controlled leg symptoms improved Physical Exam Physical Exam: Patient has good strength testing. He sitting in a chair at bedside. Appears comfortable. Results & Data ([facility]) Vital Signs (Past 12 Hours) Vital Signs Temp Pulse Resp BP Pulse Ox 04/29/21 07:29 36.7 C 77 18 113/67 92 04/29/21 02:11 36.6 C 74 16 116/61 91
[2021-04-29] MEDS ORDERED: ALBUTEROL HFA 8 GM INHALER INH PRN (10:02)
[2021-04-29] MEDS: DOCUSATE SODIUM/SENNA 50/8.6MG TAB PO SCH (20:40)
[2021-04-29] MEDS: SIMVASTATIN 20 MG TAB PO SCH (20:42)
[2021-04-30] MEDS: oxyCODONE HCL IR 5 MG TAB (IMMEDIATE RELEASE) PO PRN ×4 (05:01→22:37)
[2021-04-30] MEDS: POLYETHYLENE (MIRALAX) 17 GM PACK PO SCH ×5 (05:02→23:11)
[2021-04-30 06:09] LABS: Hematocrit (blood only) 26.8 % (42-52); Hemoglobin 8.8 g/dL (14.0-18.0); Mean Corpuscular Hgb Conc 32.8 g/dL (32-36); Mean Corpuscular Volume 100.4 fL (80-100); Mean Platelet Volume 11.8 fL (7.4-10.4); Nucleated RBC # (auto) 0.06 K/uL (0-0); Nucleated RBC % (auto) 0.4 %; Platelet Count 125 K/uL (130-400); RDW Coefficient of Variation 16.4 % (11.5-14.5); RDW Standard Deviation 59.1 fL (36.4-46.3); Red Blood Count 2.67 M/uL (4.7-6.1); White Blood Count 13.33 K/uL (4.8-10.8)
[2021-04-30] MEDS: ISOSORBIDE MONO EXTENDED REL 60 MG TABCR PO SCH ×2 (07:44→20:46)
[2021-04-30] MEDS: dexAMETHasone 8 MG in SYRINGE 0 ML IV SCH (07:44)
[2021-04-30] MEDS: GABAPENTIN 300 MG CAP PO SCH ×2 (07:44→20:45)
[2021-04-30] MEDS: POTASSIUM CHLORIDE 10 MEQ TABCR PO SCH ×2 (07:45→20:45)
[2021-04-30] MEDS: ASPIRIN 81 MG ECTAB PO SCH (07:45)
[2021-04-30] MEDS: ATENOLOL 50 MG TABLET PO SCH ×2 (07:45→20:43)
[2021-04-30] MEDS: MAGNESIUM OXIDE 400 MG TAB PO SCH ×3 (07:46→20:43)
[2021-04-30] MEDS: SPIRONOLACTONE 25 MG TAB PO SCH ×3 (07:46→20:44)
[2021-04-30] MEDS: UMECLIDINIUM BROMIDE 62.5MCG/BLISTER 7 PUFFS/INHALER INH SCH (07:46)
[2021-04-30] MEDS: MULTIVITAMIN TAB PO SCH (07:46)
--- NOTE | 2021-04-30 08:30 | Orthopedic Progress Note ---
Date of Service April 30, 2021 Assessment & Plan (1) Neurogenic claudication due to lumbar spinal stenosis: Patient will continue with physical therapy today. DVT prophylaxis is in the form of teds and SCDs. Maintain AVNI drain and dressing. Continue with bowel regimen. Continue with ambulation. Anticipate discharge home tomorrow. Admission and Anticipated Discharge Date Admission Date: April 28, 2021 Supervising Physician Co-Signing Physician Notes Dr. Byron Dillard Subjective Patient is postoperative day 2 multilevel revision decompression and fusion. He is doing well. Denies radicular leg pain. Back pain control. He is passing flatus but no bowel movement yet. AVNI drain output last shift is 125 cc. H&H is morning are 8.8 and 26.8 respectively. This is stable. He is asymptomatic. Yesterday in physical therapy ambulating roughly 300 feet. No other complaints. Review of Systems Review of Systems: All systems reviewed & are unremarkable except as noted in HPI & below Physical Exam Physical Exam: He is sitting in a chair eating breakfast No acute distress alert and oriented x3 Calves are soft nontender bilaterally Strength is 5/5 bilateral lower extremities Lumbar dressing is clean dry and intact with functioning AVNI drain Constitutional: WD/WN, vitals as above Eyes: normal visual raygoza by confrontation ENMT: external ear and nose normal, oropharynx normal Neck: normal visual inspection Respiratory: normal respiratory effort Cardiovascular: Extremities: normal capillary refill Chest (Breasts): Chest: normal inspection of chest Gastrointestinal (Abdomen): Inspection/Auscultation: abdomen normal to inspection Musculoskeletal: no cyanosis or clubbing, extremities motor strength 5/5 Extremities: extremities normal to inspection Skin: no rashes, warm and dry Neurologic: normal touch/pain/proprioception and moves all extremities Psychiatric: A+Ox3, euthymic affect Results & Data ([facility]) Vital Signs (Past 12 Hours) Vital Signs Temp Pulse Resp BP BP Pulse Ox 04/30/21 07:54 91 04/30/21 06:32 36.7 C 71 18 127/69 99 04/29/21 22:08 37.1 C 85 16 120/67 91 04/29/21 20:31 81 119/70
--- NOTE | 2021-04-30 10:35 | Hospitalist Progress Note ---
Date of Service April 30, 2021 Assessment & Plan (1) Neurogenic claudication due to lumbar spinal stenosis: POD #2 - lumbar decompression and fusion - Pain control, PT/OT per primary service - Discussed the importance of incentive spirometry with patient - Hgb today 8.8- repeat in AM - Resume Eliquis once okay with primary service (2) Paroxysmal A-fib: Pt reports no known recurrence of atrial fibrillation since initial episode - is on chronic anticoagulation - Resume Eliquis once okay with primary service - Continue beta-angela (3) Chronic obstructive pulmonary disease: - Continue maintenance inhaler - Add rescue inhaler due to chronic dyspnea/CUMMINGS - Encourage IS -No acute symptoms (4) CAD (coronary artery disease): Denies anginal symptoms at present - does have occasional CP as outpatient for which he uses prn nitro with relief - Continue aspirin, Imdur, beta-angela -No cardiac symptoms (5) Hypertension: BP at present appears well-controlled - Continue home regimen (6) Peripheral neuropathy: - Continue outpatient gabapentin Medically stable Admission and Anticipated Discharge Date Admission Date: April 28, 2021 Subjective 04/30/2021 The patient was seen and examined in medical floor He complains to have some back pain but better than yesterday Still has the drainage and has been getting physical therapy Denies any other symptoms and likely to be discharged tomorrow Review of Systems Review of Systems: All systems reviewed and are unremarkable except as noted below Musculoskeletal: + back pain (Status post lumbar fusion and decompression) Physical Exam Physical Exam: Sitting on a chair without any acute distress Constitutional: well developed, well nourished and + obese; not ill appearing Eyes: PERRL, conjunctivae normal, anicteric sclerae ENMT: external ear and nose normal, oropharynx normal Neck: trachea midline, no thyromegaly Respiratory: no respiratory distress Auscultation: lungs clear to auscultation bilaterally Cardiovascular: Rate/Rhythm: regular rate and regular rhythm Heart Sounds: no murmur Extremities: no edema Gastrointestinal (Abdomen): Inspection/Auscultation: abdomen not distended Percussion/Palpation: abdomen soft; abdomen nontender Musculoskeletal: Spine: + pain with thoraco-lumbar ROM and + lumbar spinal tenderness Neurologic: Alert, awake and oriented x3 Psychiatric: A+Ox3, euthymic affect Lymphatic: no cervical or axillary lymphadenopathy Results & Data Results & Data ([facility]) Vital Signs (Past 12 Hours) Vital Signs Temp Pulse Resp BP Pulse Ox 04/30/21 07:54 91 04/30/21 06:32 36.7 C 71 18 127/69 99 Laboratory Results Short CBC 04/30/21 Range/Units 05:35 WBC 13.33 H (4.8-10.8) K/uL Hgb 8.8 L (14.0-18.0) g/dL Hct 26.8 L (42-52) % Plt Count 125 L (130-400) K/uL Medications Administered Current Inpatient Medications Acetaminophen (Acetaminophen 500 Mg Tab) 1,000 mg PO Q8H PRN PRN Reason: MILD Pain Scale 1,2,3 & Pre PT Stop: 05/28/21 15:34 Al Hydrox/Mg Hydrox/Simethicone (Aluminum/Magnesium Susp 30 Ml Udc) 30 ml PO Q6H PRN PRN Reason: Dyspepsia Stop: 05/28/21 15:34 Albuterol (Albuterol Hfa 8 Gm Inhaler) 2 puffs INH Q6H PRN PRN Reason: Shortness Of Breath Stop: 05/29/21 10:14 Aspirin (Aspirin 81 Mg Ectab) 81 mg PO QAM [facility] Stop: 05/29/21 08:59 Last Admin: 04/30/21 07:45 Dose: 81 mg Documented by: Atenolol (Atenolol 50 Mg Tablet) 50 mg PO BID [facility] Stop: 05/28/21 20:59 Last Admin: 04/30/21 07:45 Dose: 50 mg Documented by: Bisacodyl (Bisacodyl 10 Mg Supp) 10 mg WI DAILY PRN PRN Reason: Constipation Stop: 05/30/21 13:15 Cyclobenzaprine HCl (Cyclobenzaprine Hcl 10 Mg Tab) 10 mg PO TID PRN PRN Reason: Pain Stop: 05/28/21 16:06 Diphenhydramine HCl (Diphenhydramine Capsule 25 Mg Cap) 25 mg PO Q6H PRN PRN Reason: Allergic Rhinitis/Insomnia Stop: 05/28/21 15:34 Famotidine (Famotidine 20 Mg Tab) 20 mg PO Q12H PRN PRN Reason: Dyspepsia Stop: 05/28/21 15:34 Gabapentin (Gabapentin 300 Mg Cap) 600 mg PO BID [facility] Stop: 05/28/21 20:59 Last Admin: 04/30/21 07:44 Dose: 600 mg Documented by: Hydromorphone HCl (Hydromorphone Inj 0.5 Mg/0.5 Ml Syr) 0.5 mg IV Q3H PRN PRN Reason: MOD pain (scale 4-6) & Pre PT Stop: 05/12/21 15:34 Hydromorphone HCl (Hydromorphone Inj 1 Mg/Ml Syringe) 1 mg IV Q3H PRN PRN Reason: severe pain (scale 7-10) Stop: 05/12/21 15:34 Hydroxyzine HCl (Hydroxyzine Hcl 25 Mg Tab) 25 mg PO Q8H PRN PRN Reason: Anxiety Stop: 05/28/21 15:34 Lorazepam (Ativan) 0.5 mg in 1 mls @ 1 mls/min IV Q8H PRN PRN Reason: Sedation/Anxiety Stop: 05/28/21 15:34 Promethazine HCl 12.5 mg/ (Sodium Chloride) 50.5 mls @ 202 mls/hr IV Q6H PRN PRN Reason: Nausea &/or Vomiting Stop: 05/28/21 15:34 Dexamethasone 8 mg/ Syringe 2 mls @ 1 mls/min IV DAILY [facility] Stop: 05/30/21 08:59 Last Admin: 04/30/21 07:44 Dose: 1 mls/min Documented by: Influenza Virus Vaccine Quadrival (Do Not Administer Flu Vaccine) 1 ea N/A PRN PRN PRN Reason: Notification Stop: 05/28/21 15:34 Isosorbide Mononitrate (Isosorbide [place] Extended Rel 60 Mg Tabcr) 60 mg PO BID [facility] Stop: 05/28/21 20:59 Last Admin: 04/30/21 07:44 Dose: 60 mg Documented by: Lorazepam (Lorazepam 0.5 Mg Tab) 0.5 mg PO Q8H PRN PRN Reason: sedation/anxiety Stop: 05/28/21 15:34 Magnesium Hydroxide (Magnesium Hydroxide Susp 30 Ml Udc) 30 ml PO Q24H PRN PRN Reason: Constipation Stop: 05/28/21 15:34 Magnesium Oxide (Magnesium Oxide 400 Mg Tab) 400 mg PO TID [facility] Stop: 05/28/21 20:59 Last Admin: 04/30/21 07:46 Dose: 400 mg Documented by: Metoclopramide HCl (Metoclopramide Hcl Inj 5 Mg/Ml 2 Ml Vial) 10 mg IV Q6H PRN PRN Reason: Nausea &/or Vomiting Stop: 05/28/21 15:34 Multivitamins (Multivitamin Tab) 1 tab PO QAM [facility] Stop: 05/29/21 08:59 Last Admin: 04/30/21 07:46 Dose: 1 tab Documented by: Naloxone HCl (Naloxone Hcl 0.4 Mg/1 Ml Vial/Carp) 0.1 mg IV Q5M PRN PRN Reason: Oversedation/respiratory dep Stop: 05/28/21 15:34 Ondansetron HCl (Ondansetron Inj 2 Mg/Ml 2 Ml Vial) 4 mg IV Q6H PRN PRN Reason: Nausea &/or Vomiting Stop: 05/28/21 15:34 Ondansetron HCl (Ondansetron 4 Mg Od Tab) 4 mg PO Q6H PRN PRN Reason: Nausea Stop: 05/28/21 15:34 Oxycodone HCl (Oxycodone Hcl Ir 5 Mg Tab (Immediate Release)) 5 - 10 mg PO Q4H PRN PRN Reason: Pain & Pre PT Stop: 05/12/21 15:34 Last Admin: 04/30/21 05:01 Dose: 10 mg Documented by: Pneumococcal Polyvalent Vaccine (Do Not Administer Pneumococcal Vaccine) 1 ea N/A PRN PRN PRN Reason: Notification Stop: 05/28/21 15:34 Polyethylene Glycol (Polyethylene (Miralax) 17 Gm Pack) 17 gm PO Q6 [facility] Stop: 05/29/21 05:59 Last Admin: 04/30/21 05:52 Dose: 17 gm Documented by: Potassium Chloride (Potassium Chloride 10 Meq Tabcr) 10 meq PO BID [facility] Stop: 05/28/21 20:59 Last Admin: 04/30/21 07:45 Dose: 10 meq Documented by: Senna/Docusate Sodium (Docusate Sodium/Senna 50/8.6mg Tab) 2 tab PO HS [facility] Stop: 05/28/21 20:59 Last Admin: 04/29/21 20:40 Dose: 2 tab Documented by: Simvastatin (Simvastatin 20 Mg Tab) 20 mg PO HS [facility] Stop: 05/28/21 20:59 Last Admin: 04/29/21 20:42 Dose: 20 mg Documented by: Sodium Biphosphate/Sodium Phosphate (Sod Phosphate/Sod Biphosphate Enema 132 Ml Btl) 132 ml WI ONE PRN PRN Reason: Constipation Stop: 05/28/21 15:34 Spironolactone (Spironolactone 25 Mg Tab) 25 mg PO TID [facility] Stop: 05/28/21 15:34 Last Admin: 04/30/21 07:46 Dose: 25 mg Documented by: Tramadol HCl (Tramadol Hcl 50 Mg Tablet) 50 - 100 mg PO Q4H PRN PRN Reason: Moderate-Severe pain & Pre PT Stop: 05/28/21 15:34 Umeclidinium [place] (Umeclidinium [place] 62.5mcg/Blister 7 Puffs/Inhaler) 1 puffs INH QAM [facility] Stop: 05/29/21 08:59 Last Admin: 04/30/21 07:46 Dose: 1 puffs Documented by: (1) Peripheral neuropathy Peripheral neuropathy type: polyneuropathy, unspecified Qualified Code(s): G62.9 - Polyneuropathy, unspecified
[2021-04-30] MEDS ORDERED: bisacodyL 10 MG SUPP PR PRN (13:16)
[2021-04-30] MEDS: DOCUSATE SODIUM/SENNA 50/8.6MG TAB PO SCH (20:44)
[2021-04-30] MEDS: SIMVASTATIN 20 MG TAB PO SCH (20:44)
[2021-05-01] MEDS: POLYETHYLENE (MIRALAX) 17 GM PACK PO SCH (05:10)
[2021-05-01 05:43] LABS: Basophils # (auto) 0.01 K/uL (0-0.2); Basophils % (auto) 0.1 %; Hematocrit (blood only) 26.7 % (42-52); Hemoglobin 8.9 g/dL (14.0-18.0); Immature Granulocytes # (auto) 0.18 K/uL (0.00-0.02); Lymphocytes # (auto) 2.52 K/uL (1.2-3.4); Lymphocytes % (auto) 14.5 %; Mean Corpuscular Hemoglobin 33.3 pg (25-34); Mean Corpuscular Hgb Conc 33.3 g/dL (32-36); Mean Platelet Volume 11.8 fL (7.4-10.4); Monocytes # (auto) 2.12 K/uL (0.11-0.59); Monocytes % (auto) 12.2 %; Neutrophils # (auto) 12.59 K/uL (1.4-6.5); Neutrophils % (auto) 72.2 %; Nucleated RBC # (auto) 0.06 K/uL (0-0); Nucleated RBC % (auto) 0.3 %; Platelet Count 155 K/uL (130-400); RDW Coefficient of Variation 16.1 % (11.5-14.5); Red Blood Count 2.67 M/uL (4.7-6.1); White Blood Count 17.42 K/uL (4.8-10.8)
[2021-05-01 06:17] LABS: BUN Creatinine Ratio 26.3 (10-20); Calcium 9.1 mg/dl (8.5-10.1); Est GFR (African American) 120.6 ml/min; Magnesium 2.3 mg/dl (1.8-2.4); Potassium 4.4 mmol/L (3.5-5.1)
[2021-05-01] MEDS ORDERED: IBUPROFEN 200 MG TAB PO STA (06:21)
[2021-05-01 06:58] VITALS: PULSE 73; TEMP 97.7; O2SAT 95
[2021-05-01] MEDS: UMECLIDINIUM BROMIDE 62.5MCG/BLISTER 7 PUFFS/INHALER INH SCH (08:16)
[2021-05-01] MEDS: ISOSORBIDE MONO EXTENDED REL 60 MG TABCR PO SCH (08:16)
[2021-05-01] MEDS: dexAMETHasone 8 MG in SYRINGE 0 ML IV SCH (08:16)
[2021-05-01] MEDS: GABAPENTIN 300 MG CAP PO SCH (08:17)
[2021-05-01] MEDS: ATENOLOL 50 MG TABLET PO SCH (08:17)
[2021-05-01] MEDS: SPIRONOLACTONE 25 MG TAB PO SCH (08:17)
[2021-05-01] MEDS: MAGNESIUM OXIDE 400 MG TAB PO SCH (08:17)
[2021-05-01] MEDS: POTASSIUM CHLORIDE 10 MEQ TABCR PO SCH (08:17)
[2021-05-01] MEDS: MULTIVITAMIN TAB PO SCH (08:18)
[2021-05-01] MEDS: ASPIRIN 81 MG ECTAB PO SCH (08:18)
[2021-05-01] MEDS: oxyCODONE HCL IR 5 MG TAB (IMMEDIATE RELEASE) PO PRN (08:23)
--- NOTE | 2021-05-01 10:56 | Discharge Summary ---
Date of Service May 01, 2021 Admission HPI Per Admitting Provider This is a 65-year-old male who presents with chronic persistent back and leg pain. Failing course of nonoperative care is here for surgical invention. Principal Diagnosis Lumbar spinal stenosis with neurogenic claudication Discharge Data Allergies Allergy/AdvReac Type Severity Reaction Status Date / Time No Known Allergies Allergy Verified 04/28/21 08:27 Consultations 04/28/21 15:35 Consult Hospitalist Routine Procedures Performed Operation Date: 04/28/21 09:45 Actual Procedures p T12-L5 Decompression Fusion, Application of Bone Morphogenetic Protein, L3-L5 Hardware Removal, Spinal Cord Monitoring(Not Applicable) - Byron Dillard DO Ordered Studies 04/28/21 07:00 FL lumbar spine 2-3V Routine Hospital Course (1) Neurogenic claudication due to lumbar spinal stenosis: Patient with multilevel lumbar decompression fusion tolerated this well second orthopedic for possibly. Postop day 1 is up and ambulating leg symptoms markedly improved progressed to postop day #2 posterior 3 AVNI drain decreased probably. Excellent strength testing. Pain well controlled. Subsequent discharge home. Discharge orders instructions from the chart for further review. Total Time Total Time Spent Total Time Spent (In Minutes): 20 minutes Discharge Plan Discharge Items Patient Disposition: Home - Self-Care Reason For Visit: Spinal Stenosis Lumbar Region without Neurogenic Discharge Diagnosis: Lumbar spinal stenosis with neurogenic claudication Activity: As commented below Non-emergency contact: Primary Care Provider Call non-emergency contact if: you have any medication questions Follow-up/Referrals: Los Arguello [Primary Care Provider] - Diet: Regular Addtl Attending Provider Instructions: ACTIVITY RECOMMENDATIONS: SELF CARE INSTRUCTIONS AFTER THORACIC/LUMBAR FUSIONS 1. You may walk to your tolerance. It is good exercise for your legs and back. Expect some back and intermittent leg aches and pains. 2. You may perform "counter-top" level activities (make a sandwich, edison with a project, etc.). 3. No bending or lifting of more than 10 pounds or back twisting of any nature (roll like a log when turning in bed). 4. You may ride in a car for 20-30 minutes at a time. No driving until after your first visit with your doctor. 5. Frequent changes of position and restricting sitting to 30 minutes at a time will help limit the amount of back spasms and stiffness you may experience. 6. You may discontinue the use of ambulatory aids (cane, crutches, etc.) once your strength and confidence allow. 7. You may wearing apparel presser the shower and let water strike your incision when you arrive home at least once daily. Do not take a tub bath, sit in a hot tub or go into a swimming pool until after your first recheck in the office. SPECIAL CARE INSTRUCTIONS: VERY IMPORTANT TO READ AND REVIEW A. Your surgical incision has been closed with a cosmetic suture under the skin that will dissolve in about 6 weeks. In 14 days, you can use a pair of clean scissors and cut the suture that is left outside of the skin at the ends of your incision. 1. The small skin tapes can be removed 7 days after surgery if they have not fallen off by that point. 2. You may keep the wound open to air as much as possible to promote healing after post-op day number 5 unless told otherwise by your doctor. 3. If you think the wound looks like it is becoming infected (redness or worsening drainage) and/or you are experiencing fever, chill or worsening back pain and muscle spasms, contact the office so that we may evaluate you as soon as possible. B. Complications are uncommon, but please contact us if you have any signs or symptoms of: 1. wound infection (fever higher than 102.5 degrees F, redness, separation of wound, drainage, or increasing pain from the incision) 2. blood clots in legs (pain, swelling, redness and warmth in legs) 3. urinary tract infection (fever higher than 102.5 degrees F, burning upon urination or increased frequency of urination) 4. nerve problems (inability to walk on your toes or heels, numbness, loss of bowel or bladder control) 5. any other symptoms that concern you C. Please call the office at if you have any concerns or questions about your operation or recovery. D. No smoking! Smoking drastically decreases the chance of a solid fusion. E. Do not take any anti-inflammatory medications (Indocin, Advil, Motrin, Aspirin, Naprosyn, etc.) as these may inhibit the chance of a solid fusion. Tylenol is okay to take for pain. MANAGING PAIN AFTER SPINAL SURGERY 1. Narcotic medication is intended for short-term use and will be provided for surgical pain. Surgical pain usually lasts for a period of 4-6 weeks. Narcotic medication includes Percocet, Vicodin, Darvocet, Tylenol #3 or Lortab. 2. Longer-term pain is more appropriately treated with non-narcotic medication such as Tylenol ES. 3. Muscle spasm is not appropriately treated with narcotics. Muscle relaxers such as Soma, Flexeril or Skelaxin can be used along with Tylenol ES. 4. Remember that we all live with some "aches and pains". This is not unusual or uncommon after an injury or as we get older. a. Back pain is expected and may include muscle spasms for 4 to 6 weeks after surgery. The pain should gradually improve. If the pain worsens for no apparent reason, please contact the office. b. Intermittent leg pain may also be experienced and should not be concerned about unless it worsens for no apparent reason. If so, please contact the office. 5. We will provide appropriate medication within the normal guidelines of their prescribed use. We will also be very cautious and aware of potential abuse and extended duration of patients' medication needs. a. Pain medications are for your comfort and to assist with sleep and rest so that the tissue can heal. They are not provided in order to return to normal activity and should not be used through the day. To do so or worsening pain at night can result from ongoing tissue damage and development of tolerance to the prescribed medicine. 6. Please allow 2-3 days to process refills. Prescriptions will not be mailed but must be picked up at the office. FOLLOW UP VISIT: Keep your scheduled follow-up appointment. Any questions, please call the office at . Pending Studies at Discharge: No Stand-Alone Forms: [facility], Smoking Cessation Medications and DC Order Prescriptions: New oxycodone 5 mg tablet 5 mg PO Q6H PRN (Reason: pain, severe) Qty: 30 RF: 0 tramadol 50 mg tablet 50 mg PO Q6H PRN (Reason: pain, moderate) Qty: 30 RF: 0 Continued multivitamin Tablet 1 tab PO QAM RF: 0 cyclobenzaprine 10 mg Tablet 10 mg PO TID PRN (Reason: Pain) RF: 0 potassium chloride 10 mEq Tablet Extended Release 10 meq PO BID RF: 0 aspirin 81 mg Tablet,Delayed Release (Dr/Ec) 81 mg PO QAM RF: 0 spironolactone 25 mg Tablet 25 mg PO TID RF: 0 oxycodone-acetaminophen 5-325 mg Tablet 1 tab PO BID RF: 0 isosorbide mononitrate 60 mg Tablet Extended Release 24 Hr 60 mg PO BID RF: 0 simvastatin 20 mg Tablet 20 mg PO HS RF: 0 gabapentin 300 mg Capsule 600 mg PO BID RF: 0 atenolol 50 mg Tablet 50 mg PO BID RF: 0 Spiriva with HandiHaler 18 mcg Capsule, W/Inhalation Device 1 cap INHALATION QAM RF: 0 magnesium oxide 400 mg magnesium Capsule 400 mg PO TID RF: 0 Eliquis 5 mg Tablet 5 mg PO BID RF: 0 Discharge Orders: Discharge Order (Routine); Ordered 05/01/21 Ordered By: Byron Dillard Admission Data Admit Date/Time: 04/28/21 13:57 Attending Provider: Byron Dillard Admit Provider: Byron Dillard Primary Care Provider: Los Arguello Other Providers: Magnolia Newman ; Talib Andrea
[2021-05-01 12:00] VITALS: BP 131/71
--- NOTE | 2021-05-01 16:44 | Hospitalist Progress Note ---
Date of Service May 01, 2021 Assessment & Plan (1) Neurogenic claudication due to lumbar spinal stenosis: POD #23 - lumbar decompression and fusion - Pain control, PT/OT per primary service - Discussed the importance of incentive spirometry with patient - Hgb today 8.8- repeat in AM - Resume Eliquis once okay with primary service -Remains stable and will be discharged home by the primary team today -Labs are noted and remained unremarkable (2) Paroxysmal A-fib: Pt reports no known recurrence of atrial fibrillation since initial episode - is on chronic anticoagulation - Resume Eliquis once okay with primary service - Continue beta-angela -No acute issue (3) Chronic obstructive pulmonary disease: - Continue maintenance inhaler - Add rescue inhaler due to chronic dyspnea/CUMMINGS - Encourage IS -No acute symptoms (4) CAD (coronary artery disease): Denies anginal symptoms at present - does have occasional CP as outpatient for which he uses prn nitro with relief - Continue aspirin, Imdur, beta-angela -No cardiac symptoms (5) Hypertension: BP at present appears well-controlled - Continue home regimen (6) Peripheral neuropathy: - Continue outpatient gabapentin Medically stable to be discharged Admission and Anticipated Discharge Date Admission Date: April 28, 2021 Subjective 04/30/2021 The patient was seen and examined in medical floor He complains to have some back pain but better than yesterday Still has the drainage and has been getting physical therapy Denies any other symptoms and likely to be discharged tomorrow 05/01/2021 The patient was seen and examined in medical floor He has been feeling much better and has minimal pain at the back He has been ambulating in the room without any difficulties Will be discharged home this afternoon by the primary team Review of Systems Review of Systems: All systems reviewed and are unremarkable except as noted below Ear, Nose, Mouth, Throat: no nasal congestion, no sore throat and no dysphagia Respiratory: no cough, no dyspnea (chronic), no dyspnea on exertion (chronic) and no hemoptysis Musculoskeletal: no back pain (Status post lumbar fusion and decompression) Neurologic: + tingling and + numbness; no tremor(s), no seizure-like activity, no headache(s) and no confusion Physical Exam Physical Exam: Sitting on a chair without any acute distress Constitutional: well developed, well nourished and + obese; not ill appearing Eyes: PERRL, conjunctivae normal, anicteric sclerae ENMT: external ear and nose normal, oropharynx normal Neck: trachea midline, no thyromegaly Respiratory: no respiratory distress Auscultation: lungs clear to auscultation bilaterally Cardiovascular: Rate/Rhythm: regular rate and regular rhythm Heart Sounds: no murmur Extremities: no edema Gastrointestinal (Abdomen): Inspection/Auscultation: abdomen not distended Percussion/Palpation: abdomen soft; abdomen nontender Musculoskeletal: Spine: + pain with thoraco-lumbar ROM and + lumbar spinal tenderness Neurologic: Alert, awake and oriented x3. No focal sensory or motor deficit appreciated Psychiatric: A+Ox3, euthymic affect Lymphatic: no cervical or axillary lymphadenopathy Results & Data Results & Data ([facility]) Vital Signs (Past 12 Hours) Vital Signs Temp Pulse Resp BP BP Pulse Ox 05/01/21 11:57 36.5 C 73 16 131/71 161/80 H 95 05/01/21 06:58 36.5 C 73 16 161/80 H 95 Laboratory Results Short CBC 05/01/21 Range/Units 05:23 WBC 17.42 H (4.8-10.8) K/uL Hgb 8.9 L (14.0-18.0) g/dL Hct 26.7 L (42-52) % Plt Count 155 (130-400) K/uL BMP 05/01/21 05:23 Sodium 137 Potassium 4.4 Chloride 104 Carbon Dioxide 33 H BUN 16 Creatinine 0.60 Glucose 133 H Calcium 9.1 D (1) Peripheral neuropathy Peripheral neuropathy type: polyneuropathy, unspecified Qualified Code(s): G62.9 - Polyneuropathy, unspecified
== END 2021-05-01 12:35 | disposition home or self-care (01) | DRG 460 ==
LOC: ASU 08:00 → 3E 13:57